=== PATIENT | male | born 1975 | race Caucasian/White ===

== ENCOUNTER → 2017-07-12 | Day surgery (SDC) | payer OTHER ==
[2017-07-09 14:04] VITALS: Ht 185.4 cm; Wt 108.2 kg
[~2017-07-12] VITALS: Ht 185.4 cm; Wt 108.2 kg
[~2017-07-12] MED LIST: ADVIN25/60 INH; ALBU2SYP9 INH; AMPH10TA2 PO; ATROPINE SULFATE 0.1 MG/ML 5ML SYR IV PRN; ATV/1 PO; BUPIVACAINE/EPINEPHRINE 0.25% 1:200,000 30 ML VIAL ONE; CHOL135C6 PO; CLINDAMYCIN PHOS 150 MG/ML 2 ML VIAL IV SCH; CLN200 PO; DESV100T PO; EpHEDrine SULFATE INJ 50 MG/ML AMP IV PRN; EpINEphrine INJ 1MG/ML AMP 1 MG/ML AMP ONE; FENTANYL CITRATE INJ 50 MCG/1 ML 2 ML VIAL ONE; FLUT0.15 NAE; HYDROCORTISONE SOD SUCCINATE 100 MG/2 ML VIAL ONE; IBUP-1050 PO; KETO10TA PO; LACTATED RINGER'S 1000ML 1,000 ML IV SCH; MIDAZOLAM HCL 1 MG/ML 2ML VIAL ONE; MULT-506 PO; OLOP0.1S3 OP; OMEGCAP2 PO; ONDANSETRON INJ 2 MG/ML 2 ML VIAL IV PRN; ONDANSETRON INJ 2 MG/ML 2 ML VIAL ONE; OXYC-57 PO; OXYCODONE/ACETAMINOPHEN 5-325 TAB PO PRN; PROPOFOL IV EMULSION 10 MG/ML 20 ML VIAL IV ONE; ROPIVACAINE 0.5% 5 MG/ML 30 ML VIAL ONE; ROSU5TAB PO; SCOPOLAMINE 1.5 MG TDSY TD ONE; SODIUM CHLORIDE 0.9% 1000ML 1,000 ML IV SCH; TOPI50TA24 PO; VNTHFA/IN INH
--- NOTE | 2017-07-12 12:21 | History & Physical Bridge Note ---
H&P Re-Evaluation Bridge Note: I have examined the patient, reviewed the History & Physical and in the interval since the performance of the History & Physical I have noted the following changes of clinical significance: No changes noted
--- NOTE | 2017-07-12 13:58 | [facility] Post Operative Brief Note ---
Immediate Operative Summary Operative Date Jul 12, 2017. Pre-Operative Diagnosis Right shoulder small rotator cuff tear Post-Operative Diagnosis Same as preop Procedure(s) Performed Right Shoulder Arthroscopy, Subacromial Decompression, Distal Clavicle Excision , Open Biceps Tenodesis Surgeon Dr. Velásquez Learning Support Specialist Surgeon(s) Isac Pascual PA-C Estimated Blood Loss 5 mL Findings as above Specimens None Complication(s) None Disposition Recovery Room / PACU
--- NOTE | 2017-07-12 14:09 | Discharge Instructions-SurgCtr ---
Discharge Instructions Date of Service Jul 12, 2017. Visit Reason for Visit: Right Shoulder Aseptic Necrosis Head Of Humerus Discharge Discharge Diagnosis / Problem: SAME ABOVE Discharge Goals Goal(s): Decrease discomfort, Improve function Medications Stopped Medications Name(s): Fish oil, last dose over 1 week ago Restart Stopped Medication(s): MAY RESTART 07/12/2017 Activity Recommendations Activity Limitations: as noted below Lifting Limitations: until after follow-up appointment Exercise/Sports Limitations: until after follow-up appointment Shower/Bathe: tomorrow Anesthesia . Post Anesthesia Instructions: If you have had General Anesthesia or IV Sedation: * Do not drive today. * Resume driving when surgeon permits. * Do not make important decisions or sign legal documents today. * Call surgeon for: 1. Temperature elevations greater than 101 degrees F. 2. Uncontrollable pain. 3. Excessive bleeding. 4. Persistent nausea and vomiting. 5. Medication intolerance (nausea, vomiting or rash). * For nausea and vomiting use only clear liquids such as: tea, soda, bouillon until nausea subsides, then gradually increase diet as tolerated. * If you have any concerns or questions, call your surgeon's office. If physician is unavailable and it is an emergency, call 911 or go to the nearest emergency room. . Instructions / Follow-Up Instructions / Follow-Up MEDICATIONS: * Resume previous medications unless instructed otherwise by your surgeon. * Always take pain medication on a full stomach or with food to avoid upset stomach. * Do not drink alcohol or drive while taking narcotics. * Ibuprofen or Tylenol may be taken if narcotic not needed. SPECIAL CARE INSTRUCTIONS: __ None __ Keep extremity elevated and iced x 48 hours; apply ice 20-30 minutes 8-10 times/day. May remove at night. _X_ Sling (WEAR FOR COMFORT ONLY) __24 hrs/day __ Remove at night __ Shoulder Immobilizer __ 24 hrs/day __ Remove at night _X_ Dressing __ Maintain until seen in office, may shower with plastic over site _X_ Remove dressings in 24-48 hours and then may shower _X_ Cover incisions with band-aids after showering _X_ Do not remove steri-strips (THEY ARE IN THE ARM-PIT. THEY MAY FALL OFF ON THEIR OWN) Call physician if chills or temperature rises above 102 degrees or pain unrelieved by prescribed pain medications at . . Diet Recommendations Home Diet: no limitations Fluid Restriction: None Procedures Procedures Performed: Right Shoulder Arthroscopy, Subacromial Decompression, Distal Clavicle Excision , Open Biceps Tenodesis Pending Studies Studies pending at discharge: no Work Instructions Return To Work: after follow-up Lifting Limitations: NO LIFTING MORE THAN 5 POUNDS WITH RIGHT ARM Medical Emergencies . Who to Call and When: Medical Emergencies: If at any time you feel your situation is an emergency, please call 911 immediately. . Non-Emergent Contact Non-Emergency issues call your: Primary Care Provider Call Non-Emergent contact if: you have a fever, temperature is above 101.5 . . "Provider Documentation" section prepared by Isac Pascual. .
[2017-07-12] MEDS: FENTANYL CITRATE INJ 50 MCG/1 ML 2 ML VIAL IV PRN ×2 (14:33→14:45)
[2017-07-12 15:09] VITALS: TEMP 37
--- NOTE | 2017-07-12 15:20 | Anesthesia Progress Nt - [facility] ---
Anesthesia Post Op Note Date & Time Jul 12, 2017 at 15:20 Vital Signs Pain Intensity: 2 Vital Signs Past 12 Hours Date Time Temp Pulse Resp B/P (MAP) Pulse Ox O2 Delivery O2 Flow Rate FiO2 07/12/17 15:09 37.0 20 151/83 (105) 95 Room Air 07/12/17 15:08 84 94 07/12/17 15:08 84 07/12/17 15:08 84 94 07/12/17 15:08 84 07/12/17 15:05 148/102 07/12/17 15:05 148/102 07/12/17 15:03 75 21 07/12/17 15:03 74 21 94 07/12/17 15:03 74 21 94 07/12/17 15:03 75 21 07/12/17 15:00 158/106 07/12/17 15:00 158/106 07/12/17 14:58 87 19 94 07/12/17 14:58 85 19 07/12/17 14:58 85 19 07/12/17 14:58 87 19 94 07/12/17 14:55 141/99 07/12/17 14:55 141/99 07/12/17 14:55 36.4 84 20 141/99 95 Room Air 07/12/17 14:53 93 20 94 07/12/17 14:53 92 20 07/12/17 14:53 92 20 07/12/17 14:53 93 20 94 07/12/17 14:51 141/96 07/12/17 14:51 141/96 07/12/17 14:48 82 20 07/12/17 14:48 82 20 94 07/12/17 14:48 82 20 07/12/17 14:48 82 20 94 07/12/17 14:45 158/107 07/12/17 14:45 158/107 07/12/17 14:43 84 25 07/12/17 14:43 84 25 95 07/12/17 14:43 84 25 95 07/12/17 14:43 84 25 07/12/17 14:40 159/107 07/12/17 14:40 159/107 07/12/17 14:38 81 25 99 07/12/17 14:38 80 25 07/12/17 14:38 81 25 99 07/12/17 14:38 80 25 07/12/17 14:35 148/104 07/12/17 14:35 148/104 07/12/17 14:33 81 20 100 07/12/17 14:33 82 20 07/12/17 14:33 82 20 07/12/17 14:33 81 20 100 07/12/17 14:30 145/94 07/12/17 14:30 145/94 07/12/17 14:28 82 21 07/12/17 14:28 83 21 100 07/12/17 14:28 83 21 100 07/12/17 14:28 82 21 07/12/17 14:25 143/104 07/12/17 14:25 143/104 07/12/17 14:23 79 22 07/12/17 14:23 81 22 100 07/12/17 14:23 81 22 100 07/12/17 14:23 79 22 07/12/17 14:20 140/102 07/12/17 14:20 140/102 07/12/17 14:18 83 22 07/12/17 14:18 82 22 98 07/12/17 14:18 83 22 07/12/17 14:18 82 22 98 07/12/17 14:16 144/103 07/12/17 14:16 144/103 07/12/17 14:13 87 19 96 07/12/17 14:13 87 19 96 07/12/17 14:13 87 19 07/12/17 14:13 87 19 07/12/17 14:10 143/108 07/12/17 14:10 143/108 07/12/17 14:08 91 17 07/12/17 14:08 91 17 07/12/17 14:08 89 17 140/102 100 07/12/17 14:08 89 17 140/102 100 07/12/17 14:08 36.3 93 20 140/102 99 6 07/12/17 12:45 133/89 07/12/17 12:42 82 21 96 07/12/17 12:42 82 07/12/17 12:41 82 22 96 07/12/17 12:41 81 07/12/17 12:40 129/91 07/12/17 12:36 86 21 96 07/12/17 12:36 86 07/12/17 12:31 85 22 96 12/7/17 12:31 85 07/12/17 12:30 140/88 07/12/17 12:26 96 96 07/12/17 12:26 95 07/12/17 12:25 139/92 07/12/17 12:21 94 07/12/17 12:21 94 95 07/12/17 12:20 146/91 07/12/17 12:16 103 07/12/17 12:16 102 96 07/12/17 12:15 146/89 07/12/17 12:11 99 07/12/17 12:11 100 22 136/89 97 07/12/17 12:06 96 07/12/17 12:06 96 98 07/12/17 12:05 134/93 07/12/17 12:04 96 98 07/12/17 12:04 97 07/12/17 12:00 141/94 07/12/17 11:59 94 96 07/12/17 11:59 95 07/12/17 11:55 139/91 07/12/17 11:54 82 18 07/12/17 11:54 81 18 98 07/12/17 11:53 141/86 07/12/17 11:49 86 20 94 07/12/17 11:49 83 20 07/12/17 11:44 82 23 07/12/17 11:44 82 23 94 07/12/17 11:39 77 11 07/12/17 11:39 77 11 95 07/12/17 11:07 37 90 16 152/91 (111) 94 Room Air Notes Mental Status: alert / awake / arousable, participated in evaluation Pt Amnestic to Procedure: Yes Nausea / Vomiting: adequately controlled Pain: adequately controlled Airway Patency, RR, SpO2: stable & adequate BP & HR: stable & adequate Hydration State: stable & adequate Anesthetic Complications: no major complications apparent
--- NOTE | 2017-07-12 15:28 | OPERATIVE REPORT ---
DATE OF OPERATION: 07/12/2017 PREOPERATIVE DIAGNOSIS: Severe external impingement of the right shoulder with biceps tendinopathy, AC joint arthritis and little bit of avascular necrosis. PROCEDURE: Right shoulder diagnostic arthroscopy with limited debridement, distal clavicle resection, acromioplasty, open subpectoral biceps tenodesis and core decompression of the proximal humerus. SURGEON: Dr. Barrera Velásquez. CAPTAIN CANNERY TENDER: Nitish Pascual PA-C whose assistance was necessary for positioning of the arm and helping with instrumentation. ANESTHESIA: General with a right interscalene nerve block. COMPLICATIONS: None. CONDITION: Stable to PACU. INDICATIONS: Humble is a pleasant 42-year-old male who presented to my office with a year long history of right shoulder pain. He initially hurt it when he fell on the ice. MRI last year showed a small area of avascular necrosis and external impingement but no cuff tears. He was treated conservatively over the year but unfortunately his shoulder pain continued. His symptoms have been worsening. He failed cortisone injections and year long of conservative treatment. A repeat MRI showed no difference in the small avascular lesion. He elected to undergo arthroscopy. OPERATION AND FINDINGS: On 07/12/2017, he arrived at [facility] for the above procedure. He was seen in the preoperative holding and the operative extremity was identified and signed. He was given preoperative antibiotic and a right interscalene nerve block. He was taken back to the operating room, laid on table in supine position and put under general anesthesia. He was then put into the beach chair position. The right shoulder was prepped and draped in sterile fashion. Timeout was done and the patient's operative extremity was properly identified. A scope was introduced in the posterior portal. Diagnostic arthroscopy showed no cartilage damage to the humeral head of the glenoid. There was no collapse of the cartilage of the superior humeral head. The supraspinatus, infraspinatus, teres minor and subscapularis were all checked and intact. There was a superior labral tear. An anterior portal was made under direct visualization. A shaver was then used to do a limited debridement of the intra-articular structures. The biceps tendon was pulled into the joint. There was significant amount of dorsal-sided redness. The biceps tendon was then arthroscopically tenotomized for later tenodesis. The scope was then placed in the subacromial space. A lateral portal was made. A shaver was used to do a complete subacromial and subdeltoid bursectomy. An ablator was used to tease the coracoacromial ligament off the undersurface of the acromion and a 5-0 bur was used to create an acromioplasty of a Bigliani type 3 acromion. A shaver was used to remove any excess debris. Attention was turned to the rotator cuff. The bursal side of the rotator cuff was examined extensively without evidence of tear. Attention was then turned to the distal clavicle through an anterior portal. A shaver and ablator were used to skeletonize the distal clavicle. A 5-0 allison was then used to resect the distal 5 mm of the clavicle. Complete resection was checked under direct visualization. A shaver was used to remove any excess debris and I decided to do a core decompression. The MRI showed the AVN lesion directly at the superior aspect of the humeral head. From the intra-articular viewing portal I placed an 18 gauge spinal needle directly through the rotator cuff line on top of the humeral head. I then went into the subacromial space and used a 3.2 mm drill bit from the biceps tenodesis tray. I passage the drill bit about 5 mm inferior to the placement of the spinal needle. I went until I felt resistance indicating a subchondral area. I rotated the arm into the second pass. I felt this was adequate to decompress the AVN lesion. The scope was switched back into the glenohumeral joint and there was no disruption of the cartilage. Arthroscopic shaver then removed from the shoulder. Attention was turned to an open biceps tenodesis. A small incision was made over the inferior border of the pectoralis major. Dissection was taken down through the fascia and the long head of the biceps tendon was delivered out of the wound. The tendon was then whip stitch at the anticipated level of tenodesis and the remainder of the tendon was discarded. A 6 mm hole was drilled in bicipital groove and the biceps tendon was tenodesed with an Arthrex biceps button that was passed to the posterior cortex and then a tension slide technique to deliver the tendon into the 6 mm hole. This gave good fixation. The wound was then irrigated, closed with 3-0 Vicryl and running 3-0 Monocryl. Steri-Strips were placed. Portal sites were closed with 3-0 nylon. He was then placed in a soft dressing and a regular arm sling. He was then extubated and transferred to the [facility] er and taken to the post-anesthesia care unit in stable condition. He tolerated the procedure well. I attest to the content of the Intraoperative Record and any orders documented therein. Any exception s are noted below.
[2017-07-12 15:45] VITALS: BP 149/76; PULSE 66; O2SAT 95
== END | disposition home or self-care (01) ==
LOC: X.SURG 10:36
PROVIDERS: ATTEND Orthopaedic Surgery
DX: M75.41 Impingement syndrome of right shoulder (principal); M75.22 Bicipital tendinitis, left shoulder; M19.011 Primary osteoarthritis, right shoulder; M87.811 Other osteonecrosis, right shoulder; J45.909 Unspecified asthma, uncomplicated; F32.9 Major depressive disorder, single episode, unspecified

== ENCOUNTER 2017-10-18 20:15 | Emergency (ER) | payer OTHER ==
[~2017-10-18] VITALS: Ht 185.4 cm; Wt 114.5 kg
[~2017-10-18 20:15] MED LIST changes: -ATROPINE SULFATE 0.1 MG/ML 5ML SYR IV PRN; -BUPIVACAINE/EPINEPHRINE 0.25% 1:200,000 30 ML VIAL ONE; -CLINDAMYCIN PHOS 150 MG/ML 2 ML VIAL IV SCH; -EpHEDrine SULFATE INJ 50 MG/ML AMP IV PRN; -EpINEphrine INJ 1MG/ML AMP 1 MG/ML AMP ONE; -FENTANYL CITRATE INJ 50 MCG/1 ML 2 ML VIAL ONE; -HYDROCORTISONE SOD SUCCINATE 100 MG/2 ML VIAL ONE; -LACTATED RINGER'S 1000ML 1,000 ML IV SCH; -MIDAZOLAM HCL 1 MG/ML 2ML VIAL ONE; -ONDANSETRON INJ 2 MG/ML 2 ML VIAL IV PRN; -ONDANSETRON INJ 2 MG/ML 2 ML VIAL ONE; -OXYCODONE/ACETAMINOPHEN 5-325 TAB PO PRN; -PROPOFOL IV EMULSION 10 MG/ML 20 ML VIAL IV ONE; -ROPIVACAINE 0.5% 5 MG/ML 30 ML VIAL ONE; -SCOPOLAMINE 1.5 MG TDSY TD ONE; -SODIUM CHLORIDE 0.9% 1000ML 1,000 ML IV SCH
[2017-10-18 20:19] VITALS: BP 158/89; TEMP 37; Ht 185.4 cm; Wt 114.5 kg
[2017-10-18] MEDS ORDERED: DEXAMETHASONE SOD INJ 4 MG/ML 5 ML VIAL IM ONE (20:45)
--- NOTE | 2017-10-18 20:46 | EMERGENCY ROOM VISIT NOTE ---
History Report prepared by Tara: Mily Jones Under the Supervision of: Peter PinedoO. First contact with patient: 20:26 Chief Complaint: COUGH Stated Complaint: COUGH, ASTHMA, SORE THROAT History of Present Illness The patient is a 42 year old male who presents to the Emergency Room with complaints of persistent global cough for four days. He has a history of asthma. He states that he has been coughing so much it feels like something is in the back of his throat. He reports tasting blood. He states that he has been taking cough syrup and lozenges. He states that his cough is sometimes productive. He also reports a headache. He notes that he has been taking Prednisone as needed and using his inhalers more than normal since yesterday. He reports shortness of breath. He states that his voice keeps coming and going. Source of History: patient Onset: four days Position: other (global) Quality: other (cough) Timing: other (persistent) Associated Symptoms: + headache, + SOB Review of Systems See HPI for pertinent positives & negatives. A total of 10 systems reviewed and were otherwise negative. Past Medical & Surgical Medical Problems: (1) Asthma Family History No pertinent family history Social History Smoking Status: Never Smoker Smokeless Tobacco Use: No Alcohol Use: none Drug Use: none Marital Status: Housing Status: lives with significant other Occupation Status: employed Current/Historical Medications Scheduled Amphetamine-Dextroamphetamine 10MG (Adderall 10MG), 15 MG PO BID Choline Fenofibrate (Trilipix), 1 CAP PO HS Desvenlafaxine Succinate Er (Pristiq), 100 MG PO QAM Fluticasone Prop/Salmeterol (Advair Diskus 250/50 60 Dose), 1 PUFF INH BID Fluticasone Propionate (Nasal) (Flonase Allergy Relief), 1 SPRAY MARGE QAM Multivitamin (Multivitamin), 1 TAB PO QAM [place]-3 Fatty Acids (Fish Oil), 1,000 MG PO DAILY Rosuvastatin Calcium (Crestor), 1 TAB PO DAILY Sulindac (Sulindac), 1 TAB PO BID Topiramate (Topamax), 1 TAB PO BID Scheduled PRN Albuterol Hfa (Ventolin Hfa), 2-4 PUFFS INH Q6H PRN for Shortness of Breath Albuterol Sulf (Ventolin), 0.083 % INH DAILY PRN for SOB/Wheezing Ibuprofen (Advil), 200 MG PO TID PRN for Pain Ketorolac Tromethamine (Toradol), 10 MG PO Q8 PRN for Pain Lorazepam (Ativan), 1-2 TAB PO HS PRN for Sleep Olopatadine Hcl (Patanol 0.1% Oph), 1 DROP OP DAILYBB PRN for ALLERGIC REACTION Oxycodone/Acetaminophen 5MG/325MG (Percocet 5MG/325MG), 1-2 TABLETS PO Q6 PRN for Pain Allergies Coded Allergies: Ziprasidone (Verified Allergy, Severe, MUSCLE PAIN, THROAT SWELLS, 07/12/17 ) Azithromycin (Verified Allergy, Intermediate, HIVES, 07/12/17) Citalopram (Verified Allergy, Mild, RED SKIN AND FLUSHED, 07/12/17) Escitalopram (Verified Allergy, Mild, RED SKIN AND FLUSHED, 07/12/17) Penicillins (Verified Allergy, Mild, DOES NOT TAKE, ALLERGY SHOTS IN PAST , 07/12/17) Amoxicillin (Verified Allergy, Unknown, ITCHING, 07/12/17) Carbamazepine (Verified Allergy, Unknown, "itchiness and redness", 07/12/17 ) Cephalexin (Verified Allergy, Unknown, DOES NOT TAKE, ALLERGY SHOTS IN PAST, 07/12/17) [place] [facility] [place] Cephalosporins (Verified Allergy, Unknown, "red and itchy", 07/12/17) Lidocaine (Verified Allergy, Unknown, "itchiness with patch", 07/12/17) Adhesives (Verified Adverse Reaction, Mild, RASH, 07/12/17) Physical Exam Vital Signs Date Time Temp Pulse Resp B/P (MAP) Pulse Ox O2 Delivery O2 Flow Rate FiO2 10/18/17 20:19 37.0 107 18 158/89 95 Room Air Physical Exam CONSTITUTIONAL/VITAL SIGNS: Reviewed / noted above. GENERAL: Non-toxic in appearance. INTEGUMENTARY: Warm, dry, and [place]. HEAD: Normocephalic. EYES: without scleral icterus or trauma. ENT/OROPHARYNX: clear and moist. LYMPHADENOPATHY/NECK: Is supple without lymphadenopathy or meningismus. RESPIRATORY: Lungs clear and equal. CARDIOVASCULAR: Regular rate and rhythm. GI/ABDOMEN: Soft and nontender. No organomegaly or pulsatile mass. No rebound or guarding. Normal bowel sounds. EXTREMITIES: Warm and well perfused. BACK: No CVA tenderness. NEUROLOGICAL: Intact without focal deficits. PSYCHIATRIC: normal affect. MUSCULOSKELETAL: Normally developed with good muscle tone. Medical Decision & Procedures Medications Administered Medications (Trade) Dose Ordered Sig/Sam Route Start Time Stop Time Status Last Admin Dose Admin Dexamethasone Sodium Phosphate (Dexamethasone Inj Pf) 10 mg STK-MED ONCE .ROUTE 10/18/17 20:48 10/18/17 20:49 DC 10/18/17 20:50 10 MG ED Course 2032: Previous medical records were reviewed. The patient was evaluated in room A12B. A complete history and physical examination was performed. I discussed the results and treatment plan with the patient. I answered all pertaining questions that he had. He expressed understanding and verbalized agreement. The patient will be discharged home. 2044: Ordered Decadron 10 mg IM Medical Decision Differentials considered include acute myocardial infarction, acute coronary syndrome, myocarditis, pericarditis, pericardial effusions /tamponade, esophageal perforation, pulmonary embolism, pneumonia, pneumothorax, cardiomyopathy, congestive heart, anemia, and COPD/asthma exacerbation. This is a 42-year-old male who presents to the ED with a chief complaint of a cough. The patient states that he has had it for about 4 days. The patient reports that he started prednisone yesterday. He took 60 mg. The patient also has been using Tessalon Perles and a cough syrup as well as inhalers. He states that his voice occasionally seems a little hoarse. The patient is afebrile. Exam of the throat reveals no abnormal findings. No lymphadenopathy is found in the neck. Lungs are completely clear. His symptoms appear to be mostly concentrated with the area of the larynx. I suspect that he has a laryngitis. I do not feel he needs antibiotics at this time. He was given a shot of Decadron to help with the symptoms. He was advised to not force his cough as this may aggravate or irritate more the vocal cords. The patient was felt to be stable for discharge. He will continue his prednisone. Medication Reconcilliation Current Medication List: was personally reviewed by me Blood Pressure Screening Patient's blood pressure: Elevated blood pressure Blood pressure disposition: Elevated BP felt to be situational Impression Primary Impression: Laryngitis Scribe Attestation The scribe's documentation has been prepared under my direction and personally reviewed by me in its entirety. I confirm that the note above accurately reflects all work, treatment, procedures, and medical decision making performed by me. Departure Information Dispostion Home / Self-Care Referrals Myah Rose M.D. (PCP) Forms HOME CARE DOCUMENTATION FORM, IMPORTANT VISIT INFORMATION Patient Instructions [facility] Additional Instructions Continue your prednisone. Follow-up with your doctor for further care and evaluation in 1-3 days if symptoms persist. Return to the emergency department for worsening or new symptoms or any concerns. You have been examined and treated today on an emergency basis only. This is not a substitute for, or an effort to provide, complete comprehensive medical care. It is impossible to recognize and treat all injuries or illnesses in a single emergency department visit. It is therefore important that you follow up closely with your doctor. Call as soon as possible for an appointment.
[2017-10-18] MEDS ORDERED: DEXAMETHASONE **PF** INJ 10 MG/ML VIAL ONE (20:48)
[2017-10-18] MEDS ORDERED: AMPH12.5 PO (21:16)
[2017-10-18 21:31] VITALS: PULSE 97; O2SAT 95
[2017-10-18] MEDS ORDERED: AMIT10TA6 PO (21:34)
== END 2017-10-18 21:30 | disposition home or self-care (01) ==
LOC: C.EDB 20:16 → C.EDA 21:30
DX: J04.0 Acute laryngitis (principal); J45.909 Unspecified asthma, uncomplicated; Z88.8 Allergy status to other drugs, medicaments and biological substances; Z88.0 Allergy status to penicillin